=== PATIENT | male | born 1955 | race Two or more races ===

== ENCOUNTER 2017-08-07 21:26 | Emergency (ER) | payer SELFPAY ==
[~2017-08-07] VITALS: Ht 172.7 cm; Wt 68.0 kg
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
--- NOTE | 2017-08-07 22:09 | NUR ---
DR JONES AT BEDSIDE FOR EVAL.
--- NOTE | 2017-08-07 23:02 | NUR ---
IV LINE STARTED, BLOOD DRAWN AND SENT TO LAB.
[2017-08-07 23:11] LABS: HEMATOCRIT 39 % (39-51); HEMOGLOBIN 12.4 g/dL (13.5-17.5); MEAN CORPUSCULAR HEMOGLOBIN 26 PG (26.0-33.0); MEAN CORPUSCULAR HGB CONC 32 g/dl (31.0-36.0); MEAN CORPUSCULAR VOLUME 82 fL (80-96); PLATELET COUNT (AUTO) 100 /CMM (150-450); RDW COEFFICIENT OF VARIATION 29.1 (11.5-15.0); RED BLOOD CELL COUNT(AUTO) 4.76 MIL/uL (4.5-6.0); WHITE BLOOD COUNT (AUTO) 5.6 K/uL (4.3-11.0)
[2017-08-07 23:25] LABS: CARBON DIOXIDE 27 mmol/L (21-32); CHLORIDE 100 mmol/L (98-107); CREATININE 0.5 mg/dL (0.6-1.3); GLUCOSE 69 mg/dL (74-106); POTASSIUM 4.4 mmol/L (3.5-5.1); SERUM AMMONIA 17 umol/L (11-32); SODIUM SERUM 137 mmol/L (136-145); UREA NITROGEN, BLOOD 9 mg/dL (7-18)
--- NOTE | 2017-08-07 23:30 | NUR ---
REPORT TO CHARGE NURSE SALAZAR FOR [facility].
[2017-08-07 23:31] LABS: ALANINE AMINOTRANSFERASE 41 U/L (12-78); ALBUMIN 3.1 g/dL (3.4-5.0); ALKALINE PHOSPHATASE 117 U/L (46-116); ASPARTATE AMINOTRANSFERASE 134 U/L (15-37); BILIRUBIN,DIRECT 0.3 mg/dL (0.0-0.2); BILIRUBIN,TOTAL 0.7 mg/dL (0.2-1.0); INR 0.96 (0.87-1.13); SALICYLATE 3.8 mg/dL (2.8-20.0); TOTAL PROTEIN, SERUM 7.6 g/dL (6.4-8.2)
[2017-08-07 23:33] LABS: TROPONIN I < 0.017 ng/mL (0.00-0.056)
[2017-08-07 23:34] LABS: ACETAMINOPHEN 0 ug/ml (10-30)
[2017-08-07] MEDS ORDERED: IV D5/ 0.9% NACL 1,000 ML IV ONE (23:36)
[2017-08-07] MEDS ORDERED: Magnesium 1GM/D5W 100ML PREMIX 200 ML IV ONE (23:42)
[2017-08-07 23:43] LABS: BAND % (MANUAL) 1 % (0.0-5.0); EOSINOPHILS % (MANUAL) 10 % (0-4); LYMPHOCYTES % (MANUAL) 25 % (16-48); MONOCYTES % (MANUAL) 4 % (0-11.0); NEUTROPHILS % (MANUAL) 60 (42-76)
[2017-08-08] MEDS ORDERED: Magnesium 1 GM/2 ML VIAL IV ONE
--- NOTE | 2017-08-08 00:06 | NUR ---
PT IS SLEEPING IN BED IN NO APPARENT DISTYRESS, PT ON MONITOR, VSS WILL CONTINUE TO MONITOR.
--- NOTE | 2017-08-08 01:09 | NUR ---
REMAINS RESTING WITH NO S/S OF DISTRESS. RESP EVEN AND UNLABORED. ON MONITOR.
[2017-08-08 01:10] VITALS: BP 116/76
--- NOTE | 2017-08-08 01:15 | NUR ---
PER DR. JONES "NO NEED FOR I&O FOR URINE SAMPLE".
--- NOTE | 2017-08-08 10:55 | NUR ---
PT IS AWAKE. REFUISING TO PROVIDE NAME. REFUSING TO HAVE VITAL SIGN CHECK.
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
== END 2017-08-08 11:03 | disposition home or self-care (01) ==
LOC: ER 21:30
DX: F10.129 Alcohol abuse with intoxication, unspecified (principal); R79.1 Abnormal coagulation profile; R79.89 Other specified abnormal findings of blood chemistry; R51 Headache
CPT/HCPCS: 36415; 70450; 71010; 80048; 80076; 80329; 82140; 82962; 84484; 85025; 85730; 93005; 96365; 99285; A4606; G0480; J3475; J7070; Z7610